=== PATIENT | male | born 1965 | race Caucasian/White ===

== ENCOUNTER 2017-10-24 08:03 | Inpatient (IN) | payer OTHER ==
[~2017-10-24] VITALS: Ht 175.3 cm; Wt 92.5 kg
[2017-10-24 08:03] VITALS: BP_SYST 99
[~2017-10-24 08:03] MED LIST: ATEN-167 PO; CALC667C PO; CARV6.2554 PO; CHOL500037 PO; FLA250 PO; FOLI-43 PO; GLIM1TAB PO; HYDR-4039 PO; LANS15CA5 PO; LOPE2CAP PO; NEPH PO; NIFE90TA48 PO; PRAV40TA PO; PRO40 PO
[2017-10-24] MEDS ORDERED: NACL 0.9% 1,000 ML IV ONE (08:15)
[2017-10-24] MEDS ORDERED: HYDC.5% TP (08:35)
[2017-10-24] MEDS ORDERED: FURO80TA86 PO (08:35)
[2017-10-24] MEDS ORDERED: FINA5TAB3 PO (08:35)
[2017-10-24] MEDS ORDERED: DIPH-179 PO (08:35)
[2017-10-24] MEDS ORDERED: GABA-531 PO (08:35)
[2017-10-24] MEDS ORDERED: FOLATE PO (08:35)
[2017-10-24] MEDS ORDERED: CEL20 PO (08:35)
[2017-10-24 08:41] LABS: BASOPHILS % (AUTO) 0.6 % (0.0-2.0); EOSINOPHILS # (AUTO) 0.2 K/uL (0.0-0.4); EOSINOPHILS % (AUTO) 3.9 % (0.0-4.0); HEMATOCRIT 34.1 % (36-54); HEMOGLOBIN 11.1 g/dL (14.0-18.0); LYMPHOCYTES # (AUTO) 0.9 K/uL (1.0-5.5); LYMPHOCYTES % (AUTO) 18.9 % (20.5-51.5); MEAN CORPUSCULAR HEMOGLOBIN 30 pg (27-31); MEAN CORPUSCULAR HGB CONC 33 % (32-36); MEAN CORPUSCULAR VOLUME 92 fL (79.0-98.0); MONOCYTES # (AUTO) 0.3 K/uL (0.0-1.0); MONOCYTES % (AUTO) 7.6 % (1.7-9.3); NEUTROPHILS # (AUTO) 3.2 K/uL (1.8-7.7); PLATELET COUNT (AUTO) 175 K/uL (130-430); RED BLOOD CELL COUNT(AUTO) 3.69 MIL/uL (4.2-6.2); RED CELL DISTRIBUTION WIDTH 13.6 % (9.0-15.0); WHITE BLOOD COUNT (AUTO) 4.6 K/uL (4.8-10.8)
[2017-10-24] MEDS ORDERED: LORazepam 2 MG/ML VIAL (FOR ER USE) IVP ONE (08:45)
[2017-10-24 08:50] LABS: CALCIUM 9.6 mg/dL (8.4-11.0); CREATININE 5.69 mg/dL (0.55-1.30); POTASSIUM 4.3 mmol/L (3.5-5.1)
[2017-10-24 08:52] LABS: PROTHROMBIN TIME 10.6 SECS (9.5-12.5)
[2017-10-24 08:54] LABS: ALBUMIN 4.4 g/dL (3.4-4.8); TOTAL BILIRUBIN 0.6 mg/dL (0.0-1.0)
[2017-10-24] MEDS ORDERED: DILTIAZEM HCL 25 MG/5 ML VIAL IVP ONE (09:15)
[2017-10-24 10:37] VITALS: BP_SYST 159
[2017-10-24] MEDS ORDERED: AMIODARONE HCL 200 MG TABLET PO ONE (11:00)
[2017-10-24] MEDS ORDERED: CARVEDILOL 3.125 MG TABLET (COREG) PO ONE (11:00)
[2017-10-24] MEDS ORDERED: LOPERAMIDE HCL 2 MG CAPSULE PO PRN (13:30)
[2017-10-24] MEDS ORDERED: ACETAMINOPHEN 325 MG TABLET PO PRN (13:30)
[2017-10-24] MEDS ORDERED: DIPHENOXYLATE HCL/ATROP SULF 2.5 MG TAB PO PRN (13:30)
[2017-10-24] MEDS ORDERED: ONDANSETRON HCL 4 MG/2 ML VIAL IVP PRN (13:45)
[2017-10-24] MEDS ORDERED: ALPRAZolam 0.25 MG TABLET PO PRN (13:45)
[2017-10-24] MEDS: hydrALAZINE HCL 25 MG TABLET PO SCH ×2 (14:30→23:12)
[2017-10-24] MEDS: CALCIUM ACETATE 667 MG CAP PO SCH ×2 (14:30→23:09)
[2017-10-24] MEDS: HYDROCORTISONE 0.5%, 28.35 GM TOPICAL CREAM TP SCH ×2 (15:00→23:09)
[2017-10-24 16:00] VITALS: BP_SYST 138
[2017-10-24] MEDS ORDERED: INSULIN REGULAR, HUMAN 100 UNITS/ML, 10 ML VIAL (novoLIN R) SUBCUT PRN (18:30)
[2017-10-24] MEDS ORDERED: DEXTROSE 50% JECT 50 ML DISP.SYRIN IVP PRN (18:30)
[2017-10-24] MEDS: LORazepam 2 MG/ML VIAL IVP PRN (18:35)
[2017-10-24] MEDS: AMIODARONE HCL 200 MG TABLET PO SCH (18:37)
[2017-10-24 20:39] VITALS: BP_SYST 139
[2017-10-24] MEDS ORDERED: CARVEDILOL 6.25 MG TABLET (COREG) PO SCH (21:00)
[2017-10-24] MEDS ORDERED: FUROSEMIDE 80 MG TABLET PO SCH (21:00)
[2017-10-24] MEDS: GABAPENTIN 300 MG CAPSULE PO SCH (23:11)
[2017-10-24] MEDS: ZOLPIDEM TARTRATE 5 MG TABLET PO PRN (23:11)
[2017-10-24] MEDS: CARVEDILOL 6.25 MG TABLET (COREG) PO SCH (23:12)
[2017-10-25 00:08] VITALS: BP_SYST 142
[2017-10-25] MEDS: AMIODARONE HCL 200 MG TABLET PO SCH ×3 (02:15→18:47)
[2017-10-25 07:28] LABS: ALBUMIN 3.5 g/dL (3.4-4.8); TOTAL BILIRUBIN 0.4 mg/dL (0.0-1.0)
[2017-10-25 08:00] VITALS: BP_SYST 151
[2017-10-25 08:17] LABS: CREATININE 7.92 mg/dL (0.55-1.30); POTASSIUM 6.2 mmol/L (3.5-5.1)
[2017-10-25] MEDS ORDERED: NIFEDIPINE 90 MG TABLET.SA (PROCARDIA XL 90 MG) PO SCH (09:00)
[2017-10-25] MEDS ORDERED: PRAVASTATIN SODIUM 20 MG TABLET (PRAVACHOL) PO SCH (09:00)
[2017-10-25] MEDS: ENOXAPARIN SODIUM 40 MG/0.4 ML SYRINGE SUBCUT SCH (09:50)
[2017-10-25] MEDS: FINASTERIDE 5 MG TABLET (PROSCAR) PO SCH (09:51)
[2017-10-25] MEDS: NEPHROVITE, (FOLIC ACID/VITAMIN B COMP W-C 1 TAB) PO SCH (09:51)
[2017-10-25] MEDS: FUROSEMIDE 80 MG TABLET PO SCH (09:51)
[2017-10-25] MEDS: CARVEDILOL 6.25 MG TABLET (COREG) PO SCH ×2 (09:52→22:26)
[2017-10-25] MEDS: GLIMEPIRIDE 2 MG TABLET PO SCH (09:54)
[2017-10-25] MEDS: CITALOPRAM HYDROBROMIDE 20 MG TABLET PO SCH (09:54)
[2017-10-25] MEDS: hydrALAZINE HCL 25 MG TABLET PO SCH ×3 (09:54→22:26)
[2017-10-25] MEDS: metroNIDAZOLE 250 MG TABLET PO SCH (09:55)
[2017-10-25] MEDS: FOLIC ACID 1 MG TABLET PO SCH (09:55)
[2017-10-25] MEDS: SIMVASTATIN 20 MG TABLET PO SCH (09:55)
[2017-10-25] MEDS: PANTOPRAZOLE SODIUM 40 MG TAB PO SCH (09:55)
[2017-10-25] MEDS: CALCIUM ACETATE 667 MG CAP PO SCH ×3 (10:04→22:25)
[2017-10-25] MEDS: HYDROCORTISONE 0.5%, 28.35 GM TOPICAL CREAM TP SCH ×3 (10:04→21:00)
[2017-10-25 11:09] LABS: EOSINOPHILS # (AUTO) 0.2 K/uL (0.0-0.4); MONOCYTES # (AUTO) 0.5 K/uL (0.0-1.0)
[2017-10-25 11:14] LABS: BASOPHILS % (AUTO) 0.7 % (0.0-2.0); EOSINOPHILS % (AUTO) 5.1 % (0.0-4.0); HEMATOCRIT 30.8 % (36-54); MEAN CORPUSCULAR HEMOGLOBIN 31 pg (27-31); MEAN CORPUSCULAR HGB CONC 32 % (32-36); MEAN CORPUSCULAR VOLUME 94 fL (79.0-98.0); MONOCYTES % (AUTO) 11.3 % (1.7-9.3); NEUTROPHILS # (AUTO) 2.5 K/uL (1.8-7.7); NEUTROPHILS % (AUTO) 57.9 % (40.0-70.0); PLATELET COUNT (AUTO) 142 K/uL (130-430); RED BLOOD CELL COUNT(AUTO) 3.27 MIL/uL (4.2-6.2); RED CELL DISTRIBUTION WIDTH 13.7 % (9.0-15.0); WHITE BLOOD COUNT (AUTO) 4.2 K/uL (4.8-10.8)
[2017-10-25 12:07] VITALS: BP_SYST 141
[2017-10-25] MEDS: LORazepam 2 MG/ML VIAL IVP PRN ×2 (14:03→18:42)
[2017-10-25 16:27] VITALS: BP_SYST 139
[2017-10-25 20:16] VITALS: BP_SYST 143
[2017-10-25] MEDS: ZOLPIDEM TARTRATE 5 MG TABLET PO PRN (22:25)
[2017-10-25] MEDS: GABAPENTIN 300 MG CAPSULE PO SCH (22:25)
[2017-10-26 00:24] VITALS: BP_SYST 114
[2017-10-26] MEDS: AMIODARONE HCL 200 MG TABLET PO SCH (02:26)
[2017-10-26 08:10] VITALS: BP_SYST 144
[2017-10-26] MEDS: FUROSEMIDE 80 MG TABLET PO SCH (09:01)
[2017-10-26] MEDS: GLIMEPIRIDE 2 MG TABLET PO SCH (09:01)
[2017-10-26] MEDS: CALCIUM ACETATE 667 MG CAP PO SCH ×2 (09:01→15:20)
[2017-10-26] MEDS: NEPHROVITE, (FOLIC ACID/VITAMIN B COMP W-C 1 TAB) PO SCH (09:01)
[2017-10-26] MEDS: PANTOPRAZOLE SODIUM 40 MG TAB PO SCH (09:02)
[2017-10-26] MEDS: CITALOPRAM HYDROBROMIDE 20 MG TABLET PO SCH (09:02)
[2017-10-26] MEDS: CARVEDILOL 6.25 MG TABLET (COREG) PO SCH (09:02)
[2017-10-26] MEDS: FINASTERIDE 5 MG TABLET (PROSCAR) PO SCH (09:02)
[2017-10-26] MEDS: metroNIDAZOLE 250 MG TABLET PO SCH (09:02)
[2017-10-26] MEDS: hydrALAZINE HCL 25 MG TABLET PO SCH ×2 (09:04→15:21)
[2017-10-26] MEDS: ENOXAPARIN SODIUM 40 MG/0.4 ML SYRINGE SUBCUT SCH (09:04)
[2017-10-26] MEDS: HYDROCORTISONE 0.5%, 28.35 GM TOPICAL CREAM TP SCH ×2 (09:04→15:21)
[2017-10-26] MEDS: SIMVASTATIN 20 MG TABLET PO SCH (09:04)
[2017-10-26] MEDS: FOLIC ACID 1 MG TABLET PO SCH (09:04)
[2017-10-26 12:17] VITALS: BP_SYST 161
[2017-10-26] MEDS ORDERED: APIX2.5T PO (13:39)
[2017-10-26 14:11] LABS: BASOPHILS % (AUTO) 0.6 % (0.0-2.0); EOSINOPHILS # (AUTO) 0.1 K/uL (0.0-0.4); EOSINOPHILS % (AUTO) 2.8 % (0.0-4.0); HEMATOCRIT 30.5 % (36-54); HEMOGLOBIN 10.1 g/dL (14.0-18.0); LYMPHOCYTES # (AUTO) 0.9 K/uL (1.0-5.5); LYMPHOCYTES % (AUTO) 19.9 % (20.5-51.5); MEAN CORPUSCULAR HEMOGLOBIN 31 pg (27-31); MEAN CORPUSCULAR HGB CONC 33 % (32-36); MEAN CORPUSCULAR VOLUME 93 fL (79.0-98.0); MONOCYTES # (AUTO) 0.5 K/uL (0.0-1.0); MONOCYTES % (AUTO) 9.7 % (1.7-9.3); NEUTROPHILS # (AUTO) 3.2 K/uL (1.8-7.7); PLATELET COUNT (AUTO) 133 K/uL (130-430); RED BLOOD CELL COUNT(AUTO) 3.29 MIL/uL (4.2-6.2); RED CELL DISTRIBUTION WIDTH 13.3 % (9.0-15.0); WHITE BLOOD COUNT (AUTO) 4.7 K/uL (4.8-10.8)
[2017-10-26 14:16] LABS: CALCIUM 8.7 mg/dL (8.4-11.0); POTASSIUM 5.2 mmol/L (3.5-5.1)
[2017-10-26 14:25] LABS: CREATININE 7.69 mg/dL (0.55-1.30)
[2017-10-26 15:41] VITALS: BP_SYST 147
[2017-10-26 16:33] VITALS: BP_SYST 147
[2017-10-26] MEDS ORDERED: SODIUM POLYSTYRENE SULFONATE 15 GM/60 ML UDBTL PO ONE (16:45)
[2017-10-26] MEDS ORDERED: AMIODARONE HCL 200 MG TABLET PO SCH (21:00)
== END 2017-10-26 16:52 | disposition home or self-care (01) | DRG 308 ==
LOC: SED 08:03 → STU 09:42
PROVIDERS: ADMIT Internal Medicine; ATTEND Internal Medicine
PROC: 5A1D70Z Performance of Urinary Filtration, Intermittent, Less than 6 Hours Per Day (ICD-10-PCS; principal; 2017-10-25)
DX: I48.0 Paroxysmal atrial fibrillation (principal); N18.6 End stage renal disease; E11.22 Type 2 diabetes mellitus with diabetic chronic kidney disease; E11.69 Type 2 diabetes mellitus with other specified complication; I12.0 Hypertensive chronic kidney disease with stage 5 chronic kidney disease or end stage renal disease; E11.319 Type 2 diabetes mellitus with unspecified diabetic retinopathy without macular edema; E78.5 Hyperlipidemia, unspecified; E87.5 Hyperkalemia; D63.1 Anemia in chronic kidney disease; N40.0 Benign prostatic hyperplasia without lower urinary tract symptoms; F41.9 Anxiety disorder, unspecified; D63.8 Anemia in other chronic diseases classified elsewhere; I35.9 Nonrheumatic aortic valve disorder, unspecified; H54.8 Legal blindness, as defined in USA; Z99.2 Dependence on renal dialysis; Z87.891 Personal history of nicotine dependence; Z79.899 Other long term (current) drug therapy; Z79.84 Long term (current) use of oral hypoglycemic drugs; Z79.2 Long term (current) use of antibiotics
CPT/HCPCS: 36415; 71045; 80048; 80053; 80061; 82962; 83880; 84484; 85025; 85610-TC; 85730-TC; 87081; 90935; 93005; 93306; 96361; 96374; 99285; J1650; J1815; J2060; J3490; J7030

== ENCOUNTER 2017-10-29 04:24 | Emergency (ER) | payer OTHER ==
[~2017-10-29] VITALS: Ht 175.3 cm; Wt 83.5 kg
[2017-10-29 04:24] VITALS: BP_SYST 189
[~2017-10-29 04:24] MED LIST changes: +APIX2.5T PO; -ATEN-167 PO; +CEL20 PO; -CHOL500037 PO; +DIPH-179 PO; +FINA5TAB3 PO; +FOLATE PO; +FURO80TA86 PO; +GABA-531 PO; +HYDC.5% TP
[2017-10-29 05:37] VITALS: BP_SYST 180
== END 2017-10-29 05:37 | disposition home or self-care (01) ==
LOC: SED 04:24
DX: T78.40XA Allergy, unspecified, initial encounter (principal); R11.2 Nausea with vomiting, unspecified; I10 Essential (primary) hypertension; E11.29 Type 2 diabetes mellitus with other diabetic kidney complication; N28.9 Disorder of kidney and ureter, unspecified; E78.5 Hyperlipidemia, unspecified; Z79.899 Other long term (current) drug therapy; X58.XXXA Exposure to other specified factors, initial encounter
CPT/HCPCS: 99283